=== PATIENT | male | born 1980 | race Caucasian/White ===

== ENCOUNTER → 2020-08-09 11:45 | Outpatient (CLI) | payer OTHER, SELFPAY ==
--- NOTE | 2020-08-09 11:52 | DI.MRI.S_ITS ---
PROCEDURE: MR SHOULDER RT WO CON INDICATIONS: Cervicalgia Disorder of synovium and tendon TECHNIQUE: Noncontrast oblique coronal T2 fast spin echo with fat saturation, oblique sagittal T1 spin echo and T2 fast spin echo with fat saturation, axial T1 spin echo and T2 fast spin echo with fat saturation through the shoulder. COMPARISON: [facility], MR, MR SHOULDER LT WO CON, 08/09/2020, 12:57. FINDINGS: Image quality: Excellent. Rotator cuff: Tendinosis and moderate grade articular and bursal surface partial thickness tear involving distal supraspinatus at its insertion on the humeral head is seen extending to musculotendinous junction. There is suggestion of focal full-thickness perforation involving most anterior fibers of distal supraspinatus at its insertion on the humeral head. Distal infraspinatus tendinosis and low-grade articular surface partial-thickness tear is noted. Distal subscapularis tendon is intact. Sagittal images demonstrate no significant muscle atrophy. Bones and bursae: No bone marrow contusions or fractures. Moderate acromioclavicular joint osteoarthritic changes are seen with downward osteophyte formation depressing the musculotendinous junction. Nonspecific subcortical cyst formation in greater tuberosity of humeral head is seen near rotator cuff tendon insertion site. The acromion demonstrates conventional anatomy, without an os acromiale. Small to moderate amount of joint effusion and subacromial subdeltoid bursal fluid is seen. Capsule and soft tissues: In the absence of intra-articular contrast, the labrum and glenohumeral ligaments appear intact. The long head of the biceps tendinosis and low-grade partial-thickness tear is seen. The rotator interval appears normal, without fibrosis. The coracohumeral ligament is normal in thickness. IMPRESSION: 1. Tendinosis and moderate grade articular and bursal surface partial thickness tear involving distal supraspinatus at its insertion on the humeral head extending to musculotendinous junction. Suggestion of focal full-thickness perforation involving most anterior fibers of distal supraspinatus at its insertion on humeral head. Distal infraspinatus tendinosis and low-grade articular surface partial-thickness tear. 2. Moderate acromioclavicular joint osteoarthritis. Nonspecific subcortical cyst formation in greater tuberosity of humeral head near rotator cuff tendon insertion site. No fracture or dislocation. 3. No gross focal labral tear in the absence of intra-articular contrast. 4. Proximal intra-articular portion of long head of biceps tendinosis and low-grade partial-thickness tear. Dictated by: Roni Mills M.D. on 08/09/2020 at 14:00 Approved by: Roni Mills M.D. on 08/09/2020 at 14:10
--- NOTE | 2020-08-09 11:52 | DI.MRI.S_ITS ---
PROCEDURE: MR CERVICAL SPINE WO CON INDICATIONS: Cervicalgia Disorder of synovium and tendon TECHNIQUE: Noncontrast sagittal T1 spin echo and T2 fast spin echo, sagittal STIR, foraminal oblique sagittal T2 fast spin echo, and axial gradient echo or T2 fast spin echo through the cervical spine. COMPARISON: None. FINDINGS: Image quality: Excellent. Alignment and Curvature: There is normal bony alignment. Bone Marrow: Mild discogenic marrow edema along the endplates at C3-C4, C4-C5, and C5-C6. Spinal Cord: Visualized spinal cord has normal size and signal. No cerebellar tonsillar herniation. Regional Soft Tissues: No paravertebral masses. Prevertebral soft tissues are normal in thickness. C2-C3: No spinal canal or neural foraminal stenosis. C3-C4: Facet and uncovertebral hypertrophy contribute to mild neural foraminal narrowing on the left. No spinal canal stenosis. C4-C5: Facet and uncovertebral hypertrophy contribute to mild bilateral neural foraminal narrowing. Mild spinal canal stenosis due to posterior disc-osteophyte complex. C5-C6: Mild spinal canal stenosis due to posterior disc osteophyte complex. Facet and uncovertebral hypertrophy contribute to moderate left and mild right neural foraminal stenosis. C6-C7: Mild bilateral neural foraminal narrowing due to facet and uncovertebral hypertrophy. No spinal canal stenosis. . C7-T1: No spinal canal or neural foraminal stenosis. IMPRESSION: Multilevel multifactorial degenerative changes, worst at C5-C6 with moderate left neural foraminal stenosis. Dictated by: Merlin Hester M.D. on 08/09/2020 at 13:51 Approved by: Merlin Hester M.D. on 08/09/2020 at 13:54
--- NOTE | 2020-08-09 13:17 | DI.MRI.S_ITS ---
PROCEDURE: MR SHOULDER LT WO CON INDICATIONS: Left shoulder pain TECHNIQUE: Noncontrast oblique coronal T2 fast spin echo with fat saturation, oblique sagittal T1 spin echo and T2 fast spin echo with fat saturation, axial T1 spin echo and T2 fast spin echo with fat saturation through the shoulder. COMPARISON: None. FINDINGS: Image quality: Excellent. Rotator cuff: Supraspinatus tendinopathy and thickening with partial-thickness articular and bursal sided tear involving the critical zone and footprint. No definite full-thickness defect identified. Infraspinatus tendinopathy and low-grade bursal surface fraying is present. Teres minor tendon appears intact. Subscapularis tendinopathy and thickening with interstitial tearing is noted, as well as bursal and articular surface fraying. No atrophy of the rotator cuff muscles. Bones and bursae: No bone marrow contusions or fractures. A presumed subcentimeter bone island seen in the posterior aspect of the humeral head. Degenerative cystic change present at the anterior aspect of the greater tuberosity. Severe hypertrophic acromioclavicular joint degeneration. Mild to moderate glenohumeral joint degeneration Acromion demonstrates conventional anatomy, without an os acromiale. Severe subacromial-subdeltoid bursitis. Capsule and soft tissues: Labrum: Incidental sublabral foramen noted. Labral tear involving the posterior and inferior segment as well as the anteroinferior segment. There is adjacent glenoid rim sclerosis and spurring. Long head of the biceps tendon intact. Obliteration of the subcoracoid fat. Coracohumeral ligament is not well seen and could be ruptured.. IMPRESSION: Supraspinatus tendinopathy and thickening with partial-thickness articular and bursal sided tear. No definite full-thickness defect. Infraspinatus tendinopathy with low-grade bursal surface fraying paragraphs subscapularis tendinopathy and interstitial tearing, with low-grade bursal and articular surface fraying. Chronic circumferential labral tear involving the anteroinferior, inferior and posterior segment. Severe subacromial-subdeltoid bursitis. Additional findings as above. Dictated by: Percy Chatman M.D. on 08/09/2020 at 13:52 Approved by: Percy Chatman M.D. on 08/09/2020 at 14:02
== END ==
PROVIDERS: PCP Physical Medicine & Rehabilitation; Referring Provider Physical Medicine & Rehabilitation; Visit Provider Physical Medicine & Rehabilitation
DX: M54.2 Cervicalgia (principal); M67.919 Unspecified disorder of synovium and tendon, unspecified shoulder; M47.812 Spondylosis without myelopathy or radiculopathy, cervical region; M25.512 Pain in left shoulder; M75.112 Incomplete rotator cuff tear or rupture of left shoulder, not specified as traumatic; S43.492A Other sprain of left shoulder joint, initial encounter; M75.52 Bursitis of left shoulder; M19.011 Primary osteoarthritis, right shoulder; M75.111 Incomplete rotator cuff tear or rupture of right shoulder, not specified as traumatic; S46.111A Strain of muscle, fascia and tendon of long head of biceps, right arm, initial encounter
CPT/HCPCS: 72141; 73221

== ENCOUNTER → 2023-10-30 12:24 | Outpatient (CLI) | payer OTHER, SELFPAY | PROVIDERS: Referring Provider Chiropractor; Visit Provider Chiropractor | DX: J45.909 Unspecified asthma, uncomplicated (principal); M13.80 Other specified arthritis, unspecified site | CPT/HCPCS: 94060 ==